=== PATIENT | female | born 1985 | race Caucasian/White ===

== ENCOUNTER 2017-01-18 18:37 | Emergency (ER) | payer OTHER ==
[~2017-01-18 18:37] MED LIST: ALBU8.5H4 IH
[2017-01-18] MEDS ORDERED: fentaNYL-PF 50 mCg/mL 2 mL Inj ONE (18:43)
[2017-01-18] MEDS ORDERED: Ondansetron 2 mg/mL 2 mL Inj ONE (18:43)
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
[2017-01-18] MEDS ORDERED: fentaNYL-PF 50 mCg/mL 2 mL Inj IVPUSH PRN (18:50)
[2017-01-18 19:06] LABS: BASOPHILS % (AUTO) 0.2 % (0-3); EOSINOPHILS % (AUTO) 1.1 % (0-5); MONOCYTES % (AUTO) 7.1 % (4-12); Mean Corpuscular Hemoglobin 29.5 pg (27.0-35.0); Mean Corpuscular Volume 88.3 fL (81-100); NEUTROPHILS % (AUTO) 77.5 % (40-74); Platelet Count 248 bil/L (150-400)
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
[2017-01-18 19:39] LABS: Lipase 24 U/L (13-60)
[2017-01-18] MEDS ORDERED: Ondansetron 2 mg/mL 2 mL Inj IVPUSH PRN (19:45)
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
[2017-01-18 20:37] VITALS: BP 138/65; PULSE 97; RESP 20; O2SAT 98
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
[2017-01-19] MEDS ORDERED: Sodium Chloride LOK Flush 10 mL Syringe IVFLUSH SCH (00:30)
== END 2017-01-18 20:39 | disposition short-term general hospital (02) ==
LOC: EDBD 18:37 → SED 18:37
DX: S06.330A Contusion and laceration of cerebrum, unspecified, without loss of consciousness, initial encounter (principal); S06.6X0A Traumatic subarachnoid hemorrhage without loss of consciousness, initial encounter; M25.552 Pain in left hip; M25.551 Pain in right hip; V49.40XA Driver injured in collision with unspecified motor vehicles in traffic accident, initial encounter; Y93.89 Activity, other specified; Y99.8 Other external cause status; Y92.410 Unspecified street and highway as the place of occurrence of the external cause; K21.9 Gastro-esophageal reflux disease without esophagitis; J45.909 Unspecified asthma, uncomplicated; Z79.51 Long term (current) use of inhaled steroids; Z88.2 Allergy status to sulfonamides
CPT/HCPCS: 36415; 70450; 71010; 71260; 72125; 72170; 74177; 80053; 81025; 83690; 84703; 85025; 96374; 96375; 99285; G0390; Q9967

== ENCOUNTER 2017-02-14 19:37 | Emergency (ER) | payer OTHER ==
[~2017-02-14] VITALS: Ht 165.1 cm; Wt 79.5 kg
[2017-02-14 19:49] VITALS: BP 137/80; PULSE 69; RESP 17; O2SAT 97
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
[2017-02-14] MEDS ORDERED: Ondansetron 2 mg/mL 2 mL Inj IVPUSH PRN (21:30)
[2017-02-14 21:50] LABS: BASOPHILS % (AUTO) 0.3 % (0-3); EOSINOPHILS % (AUTO) 2.5 % (0-5); MONOCYTES % (AUTO) 8.4 % (4-12); Mean Corpuscular Hemoglobin 29.5 pg (27.0-35.0); Mean Corpuscular Volume 89.2 fL (81-100); NEUTROPHILS % (AUTO) 63.3 % (40-74); Platelet Count 260 bil/L (150-400)
[2017-02-14] MEDS: HYDROmorphone 0.5 mg/0.5 mL iSecure Syringe IVPUSH PRN (21:56)
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
[2017-02-15] MEDS ORDERED: cefTRIAXone Inj 2,000 MG in Dextrose 5% Minibag Plus 50 ML IV ONE ×2
[2017-02-15] MEDS ORDERED: _oxyCODONE/APAP 5-325 mg Tablet PO PRN
[2017-02-15] MEDS ORDERED: oxyCODONE-Acetamin 5-325 mg Tablet PO ONE
[2017-02-15] MEDS: HYDROmorphone 0.5 mg/0.5 mL iSecure Syringe IVPUSH PRN (00:26)
[2017-02-15 01:10] VITALS: BP 122/61; PULSE 67; RESP 18; O2SAT 99
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
== END 2017-02-15 01:11 | disposition home or self-care (01) ==
LOC: SED 19:37
DX: S70.12XA Contusion of left thigh, initial encounter (principal); V89.2XXA Person injured in unspecified motor-vehicle accident, traffic, initial encounter; Y93.89 Activity, other specified; Y92.89 Other specified places as the place of occurrence of the external cause; Y99.8 Other external cause status; L03.116 Cellulitis of left lower limb; G47.00 Insomnia, unspecified; K21.9 Gastro-esophageal reflux disease without esophagitis; J45.909 Unspecified asthma, uncomplicated; E73.9 Lactose intolerance, unspecified; Z88.2 Allergy status to sulfonamides
CPT/HCPCS: 36415; 73551; 73700; 80053; 85025; 93970; 96365; 96375; 96376; 99285; J0696; J1170; J2405